=== PATIENT | male | born 1985 | race African-American/Black ===

== ENCOUNTER 2021-05-16 16:39 | Emergency (ER) | payer BC ==
[~2021-05-16] VITALS: Ht 172.7 cm; Wt 83.9 kg
[2021-05-16 16:43] VITALS: BP 140/69
[2021-05-16] MEDS ORDERED: IBUP-2213 PO (17:10)
[2021-05-16] MEDS ORDERED: IBUPROFEN 600 MG TAB PO SCH (17:10)
[2021-05-16 17:38] VITALS: BP 140/69
== END 2021-05-16 17:39 | disposition home or self-care (01) ==
LOC: MED 16:39
DX: S01.01XA Laceration without foreign body of scalp, initial encounter (principal); W06.XXXA Fall from bed, initial encounter; Y93.89 Activity, other specified; Y92.89 Other specified places as the place of occurrence of the external cause; Y99.8 Other external cause status
CPT/HCPCS: 90471; 90715; 99283

== ENCOUNTER 2021-06-03 18:52 | Emergency (ER) | payer BC ==
[~2021-06-03] VITALS: Ht 175.3 cm; Wt 81.6 kg
[~2021-06-03 18:52] MED LIST: IBUP-2213 PO
[2021-06-03 19:00] VITALS: BP 137/90
== END 2021-06-03 19:04 | disposition left against medical advice (07) ==
LOC: MED 18:52
DX: Z48.00 Encounter for change or removal of nonsurgical wound dressing (principal); Z53.21 Procedure and treatment not carried out due to patient leaving prior to being seen by health care provider